=== PATIENT | female | born 1960 | race Caucasian/White ===

== ENCOUNTER 2023-11-10 14:19 | Emergency (ER) | payer BC ==
[~2023-11-10] VITALS: Ht 147.3 cm; Wt 56.7 kg
[2023-11-10 14:25] VITALS: BP_SYST 138; PULSE 98; RESP 18; TEMP 98.2; O2SAT 95
[2023-11-10] MEDS ORDERED: DIPHTH,PERTUSS(ACELL),TET VAC 0.5 ML VIAL (Tdap) I.M. ONE (19:15)
[2023-11-10] MEDS ORDERED: ACET-2634 PO (20:21)
[2023-11-10 20:35] VITALS: BP_SYST 138; PULSE 98; RESP 18; TEMP 98.2; O2SAT 98
== END 2023-11-10 20:25 | disposition home or self-care (01) ==
LOC: SED 14:19
DX: S61.212A Laceration without foreign body of right middle finger without damage to nail, initial encounter (principal); Z79.899 Other long term (current) drug therapy; W23.0XXA Caught, crushed, jammed, or pinched between moving objects, initial encounter; Y93.89 Activity, other specified; Y92.89 Other specified places as the place of occurrence of the external cause; Y99.8 Other external cause status
CPT/HCPCS: 73140-TC; 90715; 99283